=== PATIENT | male | born 1955 | race Hispanic/Latino ===

== ENCOUNTER 2023-05-17 09:45 | Day surgery (SDC) | payer OTHER ==
[2023-05-11 11:42] LABS: Absolute Lymphocytes (CBC) 1.7 K/uL (0.7-4.9); Hematocrit 42.1 % (39.6-49.0); Lymphocytes % 21.4 % (15.3-44.8); MCV 89.5 fL (80-100); MPV 8.5 fL (7.6-11.3); Platelets 256 thou/uL (152-406)
[2023-05-11 11:47] LABS: Protime INR 1.13
[2023-05-11 11:55] LABS: Potassium 3.8 mEq/L (3.5-5.1)
--- NOTE | 2023-05-11 12:39 | RAD REPORT ---
EXAM DESCRIPTION: RAD - Chest Pa And Lat (2 Views) - 05/11/2023 11:40 am CLINICAL HISTORY: pre op pending cystoscopy/laser lithotripsy Chest pain. COMPARISON: No comparisons TECHNIQUE: PA and lateral views of the chest were obtained. FINDINGS: The lungs are hyperexpanded compatible with COPD. The heart is upper limit of normal in si ze. No fracture or aggressive bony process. Small metallic foreign body projects over the inferior ri ght heart border along the right hemidiaphragm. IMPRESSION: COPD without acute process identified. The USPSTF recommends annual screening for lung cancer with low-dose CT (LDCT) in adults aged 50 to 8 0 years who have a 20 pack-year smoking history and currently smoke or have quit within the past 15 y ears.
--- NOTE | 2023-05-12 12:30 | EKG ---
Test Date: 2023-05-11 Test Time: 11:24:17 Thread Milling Machine Set Up Operator: OSMAN MEASUREMENT RESULTS: Intervals: Rate: 79 NH: 184 QRSD: 84 QT: 372 QTc: 426 [place]: P: 14 NH: 184 QRS: -21 T: 16 INTERPRETIVE STATEMENTS: Normal sinus rhythm Moderate voltage criteria for LVH, may be normal variant Cannot rule out Septal infarct, age undetermined Abnormal ECG Compared to ECG 01/14/2011 10:31:56 Myocardial infarct finding now present Left-axis deviation no longer present Electronically Signed On 05-12-23 12:28:03 CDT by Joe Maier
[2023-05-17] MEDS ORDERED: Ringers Lactate 1,000 ML IV ONE (10:11)
[2023-05-17] MEDS ORDERED: propofoL 200 MG/20 ML VIAL IV ONE ×2 (10:55→12:31)
[2023-05-17] MEDS ORDERED: FENTANYL CITR 100 MCG/2 ML ONE ×2 (10:55→11:59)
[2023-05-17] MEDS ORDERED: LIDOCAINE 1% MPF 5 ML VIAL ONE (10:55)
[2023-05-17] MEDS: CEFAZOLIN SODIUM 2 GM/VIAL ONE ×2 (11:33→11:37)
[2023-05-17] MEDS ORDERED: ONDANSETRON 4 MG/2 ML VIAL ONE (11:43)
[2023-05-17] MEDS ORDERED: dexAMETHasone 10 MG/ML VIAL ONE (11:44)
[2023-05-17] MEDS ORDERED: EPHEDRINE SULF 50 MG/ML VIAL ONE (11:46)
[2023-05-17] MEDS ORDERED: Mastisol Adhesive Liq ONE (12:37)
--- NOTE | 2023-05-17 12:49 | RAD REPORT ---
EXAM DESCRIPTION: RAD - Urethrocystogrphy Retrograde - 05/17/2023 12:42 pm CLINICAL HISTORY: LEFT STENT PLACEMENT COMPARISON: No comparisons FINDINGS: Total fluoro time: 0.18 minutes
[2023-05-17] MEDS ORDERED: PHENAZOPYRIDINE 100MG TAB PO ONE (13:32)
[2023-05-17] MEDS ORDERED: HYDROCODONE/APAP 5/325 MG TAB PO PRN (13:32)
[2023-05-17 14:24] VITALS: BP 129/73; TEMP 97.1; O2SAT 96
--- NOTE | 2023-05-17 20:17 | OP ---
Surgeon: MARTHA WALSH Preoperative Diagnosis: Left nephroureterolithiasis. Postoperative Diagnoses: 1.Left nephrolithiasis. 2.No ureterolithiasis noted. Principal Procedures: 1.Cystoscopy. 2.Left retrograde pyelography. 3.Left ureteroscopy with laser lithotripsy. 4.Tethered left ureteral stent placement. Indication For Procedure: Mr. Schwarz presented to the Urology Clinic with a history of a 7 mm x 3 mm obstructing ureteral calculus obtained on outside imaging. This was associated with a 5 mm ki dney stone on the left side. Despite straining his urine, he never saw a stone pass and thus present s today for definitive evaluation and management of his ureteral calculus and if possible his renal c alculus. Procedure In Detail: The patient was consented in the preoperative holding area before being transfe rred to the operative suite where general anesthesia was induced. He was given Ancef 2 g IV antimicr obial prophylaxis and pneumo boots were provided for DVT prophylaxis. He was placed in the lithotomy position, padded and secured to the table appropriately, and his genitalia were prepped with Hibicle ns and draped in standard fashion. The case was begun using a 22-Spanish rigid cystoscope to traverse the bladder with ease. Of note, there was evidence of prior prostatic urethral resection, but there was still significant lateral lobar hypertrophy largely emanating from the patient's left side. The bladder was surveyed in its entirety, and there were no papillary mucosal lesions, foreign bodies or stones noted throughout. The ureteral orifices were orthotopic in location. I thus cannulated the left ureteral orifice using a 5-Spanish ureteral access catheter and performed a retrograde pyelogram study. Left retrograde pyelography: Using a 70:30 mixture of Omnipaque and saline, contrast was injected vi a the lumen of the 5-Spanish ureteral access catheter and did propagate up the distal into the mid and proximal ureter without signs of ureteronephrosis with the exception of initial delayed nephrogram w ith contrast that effluxed around the 5-Spanish ureteral access catheter back into the bladder. After that initial efflux into the bladder, I advanced the 5-Spanish ureteral access catheter further into the mid distal ureter and again injected contrast, and this time it did enter the renal pelvis and ca lyces without evidence of blunting or pelvocaliectasis. Because of the initial reflux of contrast ba ck out the ureteral orifice on the initial attempt and injection, I elected to survey to ensure the a bsence of any partial obstruction due to a remnant ureteral calculus. Because of his known nephrolit hiasis, I decided to approach it flexible ureteroscopically. So, I then removed the 5-Spanish uretera l access catheter after placing a Sensor wire via the 5-Spanish ureteral access catheter, coiling it w ithin the upper pole calyx. I then passed over the Sensor wire and a dual-lumen catheter all the way into his upper pole calyx to dilate the ureter and passed a Bentson guidewire via the second lumen o f the dual-lumen catheter, again coiling it within the upper pole calyx. After a period of dilation, I removed the dual-lumen catheter and passed over the Bentson guidewire a flexible ureteroscope with ease all the way into the upper pole calyx. I then surveyed each of the calices under direct vision . Within the upper pole and mid pole calyces both anterior and posterior, no stones were noted, only some slight early formation of Jose Antonio's plaques. However, within the lower pole calyx, there was e vidence of disrupted papilla where a stone had likely recently been extruded, and there was slight re sidual stone burden within that disrupted papilla. As a result, I utilized a 272 nm laser fiber and power setting of 0.8 joules and 15 hertz to disrupt the remnant degree of calculus from within that p apilla in the lower pole, and ensure complete elimination of that Jose Antonio's plaque. I then surveyed back into the mid pole and upper pole calices, and where any significant Jose Antonio's plaques were noted , I superficially fulgurated them with the laser fiber. I then surveyed each of the calices on the w ay out ensuring each had been seen by injecting contrast via the ureteroscope to delineate each of th e calices and the pelvicalyceal distribution system, and once I was confident I had seen all of the c alices, I surveyed back into the renal pelvis down into the proximal through the mid and distal urete r on the way out. I saw no additional ureteral calculi, and so I removed the ureteroscope. I then b ack-loaded the cystoscope over the indwelling Sensor safety wire and passed a 6-Spanish x 26 cm double -J ureteral stent, which was left on its tether. A coil was formed fluoroscopically in the upper solo e and 1 cystoscopically was formed in his bladder. I then decompressed his bladder of fluid and urin e and removed the cystoscope. I then utilized Mastisol and Steri-Strips to secure the tether of the ureteral stent to his glans penis and then took him out of the lithotomy position. He was then awake deja from general anesthesia, transferred to a stretcher, and then transferred to the recovery room in good condition. Complications: None. Discharge Disposition: He may follow up on to have the left ureteral tethered stent removed in clinic. He may be given a single dose of Keflex for antimicrobial prophylaxis as long as he has no known allergy to it or penicillin. Otherwise, followup should be established if he is a recurrent stone former, i.e., he has had stone passage events in the past, and we should arrange a metabolic p rofile assessment with Litholink x2, which should occur about 1 month after stent is removed. He ann-marie velazquez then see me about a month after that or about 2 months from now. AUSTIN/LINDA Voice ID: [id number] Report ID: [id number]
== END 2023-05-17 14:15 | disposition home or self-care (01) ==
LOC: OR 09:45
PROVIDERS: ATTEND Urology
PROC: 0T778DZ Dilation of Left Ureter with Intraluminal Device, Via Natural or Artificial Opening Endoscopic (ICD-10-PCS; 2023-05-17)
PROC: 0TF78ZZ Fragmentation in Left Ureter, Via Natural or Artificial Opening Endoscopic (ICD-10-PCS; principal; 2023-05-17 11:45)
DX: N20.2 Calculus of kidney with calculus of ureter (principal); E78.00 Pure hypercholesterolemia, unspecified; F17.210 Nicotine dependence, cigarettes, uncomplicated
CPT/HCPCS: 93005; 87088; 85025; 87086; 80048; 36415; 85610; 71046; 74450; 51610; 52356; J2704 ×2; J2001; J3010 ×2; J1100; J2405; J7120

== ENCOUNTER 2024-07-05 15:28 | Inpatient (IN) | payer OTHER ==
[2024-07-16] MEDS ORDERED: ALBUTEROL 2.5 MG/3 ML NEB SOL NEB PRN (21:49)
[2024-07-16] MEDS ORDERED: IPRATROPIUM BROM 0.5MG/2.5ML NEB PRN (21:49)
[2024-07-16] MEDS ORDERED: POLYETHYL GLY 3350 17 GM/DOSE PO PRN (22:07)
[2024-07-16] MEDS ORDERED: ONDANSETRON 4 MG (ODT) TAB PO PRN ×2 (22:07→23:34)
[2024-07-16] MEDS ORDERED: MECLIZINE HCL 12.5 MG TAB FT PRN (22:07)
[2024-07-16] MEDS ORDERED: METOCLOPRAMIDE 10MG/10ML UCUP FT PRN (22:07)
[2024-07-16] MEDS ORDERED: HYOSCYAMINE SULF 0.125 MG TAB PO PRN (22:07)
[2024-07-16 22:41] LABS: Renal Epithelial <5 /HPF (None Seen); Specific Gravity 1.016 (1.005-1.030); Sqamous Epithelial None Seen /HPF (None Seen); Urine Bacteria <20 /HPF (<20); Urine Bilirubin NEGATIVE (Negative); Urine Blood 2+ (Negative); Urine Clarity Extremely Turbid (Clear); Urine Color Yellow (Yellow); Urine Culture Reflex Order NOT NEEDED; Urine Glucose TRACE (Negative); Urine Ketones TRACE (Negative); Urine Micro Reflex YN NO BILL MICROSCOPIC; Urine Mucus Slight /HPF (None Seen); Urine Nitrite NEGATIVE (Negative); Urine Protein TRACE (Negative); Urine RBC >50 /HPF (None Seen); Urine Urobilinogen 3+ (Normal); Urine WBC <5 /HPF (<5); Urine pH 7.5 (5.0-7.0)
[2024-07-16 23:06] VITALS: BMI 23.7
--- NOTE | 2024-07-16 23:53 | RAD REPORT ---
Clinical Indication: Check PEG placement. Comparison: None. FINDINGS: Supine radiograph of the abdomen, 1 view, was obtained. No gas dilated loops of bowel are noted. Ther e is no pneumatosis or mass effect. There are no radiopaque densities noted. The bony structures are unremarkable. A gastrostomy catheter is noted overlying the epigastric region. Two T-tacks are noted. Contrast was injected through the gastrostomy catheter opacifying the gastric lumen. No extravasation of contrast is noted. IMPRESSION: 1. Percutaneous gastrostomy catheter in good position. Electronically signed by: Nicho Galo MD 07/16/2024 11:43 PM [facility] Due to temporary technical issues with the PACS/J[employer] reporting system, reports are being beatriz d by the in-house radiologist without review as a courtesy to ensure prompt reporting the interpreting radiologist is fully responsible for the content of the report. Transcribed Date/Time: 07/16/2024 11:53 PM
[2024-07-17 04:55] LABS: Absolute Eosinophils 0.1 K/uL (0-0.5); Absolute Lymphocytes (CBC) 1.5 K/uL (0.7-4.9); Absolute Monocytes 0.6 K/uL (0.1-1.3); Absolute Neutrophil 5.3 K/uL (1.8-8.0); Basophils % 0.3 % (0-1.3); Eosinophils % 1.4 % (0-4.4); Hematocrit 35.7 % (39.6-49.0); Hemoglobin 11.8 g/dL (13.6-17.9); Lymphocytes % 20.3 % (15.3-44.8); MCH 30.3 pg (27.0-35.0); MCHC 33.2 g/dL (32.0-36.0); MCV 91.2 fL (80-100); MPV 8.9 fL (7.6-11.3); Monocytes % 7.6 % (3.3-12.3); Neutrophils % 70.4 % (41.7-73.7); Platelets 273 thou/uL (152-406); RBC Red Blood Cell Count 3.92 M/uL (4.33-5.43); Red Cell Distribution Width 13.7 % (12.1-15.2)
[2024-07-17 05:26] LABS: Albumin 2.5 g/dL (3.4-5.0); Anion Gap 6.4 mEq/L (5.0-15.0); Potassium 3.4 mEq/L (3.5-5.1); Prealbumin 13.6 mg/dL (20-40)
[2024-07-17] MEDS: ASPIRIN 81 MG CHEWABLE TABLET FT SCH (07:22)
[2024-07-17] MEDS: ENOXAPARIN 40 MG/0.4 ML SQ SCH (07:22)
[2024-07-17] MEDS: SUCRALFATE 1 GM TABLET FT SCH (07:22)
[2024-07-17] MEDS: INSULIN REGULAR (HUMAN) 100 UNIT/ML SQ SCH (07:30)
[2024-07-17] MEDS: Pantoprazole (granules) 40 MG/BLIST PACKET FT SCH (07:30)
[2024-07-17] MEDS ORDERED: ASPIRIN EC 81 MG TAB PO SCH (08:00)
[2024-07-17] MEDS: COENZYME Q10- 200 MG CAP PO SCH (08:00)
--- NOTE | 2024-07-17 08:37 | RAD REPORT ---
EXAM: CT brain without contrast HISTORY: rt side numbness COMPARISON: Outside examination TECHNIQUE: Multiple contiguous axial images were obtained and a CT of the brain without contrast. Sag ittal and coronal reformats were performed. One or more of the following dose reduction techniques were used: Automated exposure control, adjust ment of the mA and/or kV according to patient size, and/or iterative reconstruction. FINDINGS: No evidence of hydrocephalus, intracranial hemorrhage, or extra-axial fluid collection. Moderate brain atrophy with moderate periventricular and deep white matter chronic microvascular isc hemic changes present. No evidence of midline shift or areas of brain edema. The calvarium is intact. The visualized paranasal sinuses and mastoid air cells are essentially clear . IMPRESSION: No evidence of acute intracranial abnormality.
[2024-07-17] MEDS ORDERED: guaiFENesin 100 MG/5 ML UCUP PO PRN (13:13)
[2024-07-17] MEDS: POTASSIUM 25 MEQ EFFERV TAB PO ONE (13:52)
[2024-07-17] MEDS: ONDANSETRON 4 MG (ODT) TAB FT PRN (13:52)
--- NOTE | 2024-07-17 16:39 | RAD REPORT ---
Procedure: Chest Single View HISTORY: Cough COMPARISON: 2022 FINDINGS: The lungs appear clear of acute infiltrate.. Lungs are hyperaerated. cardiac monitor device in place. No significant pleural effusion noted. The heart is normal size. IMPRESSION: No acute abnormality is displayed.
[2024-07-17] MEDS ORDERED: FAMOTIDINE 20 MG TAB PO SCH (20:00)
[2024-07-17] MEDS: MELATONIN 5 MG TABLET PO PRN (20:54)
[2024-07-17] MEDS: TAMSULOSIN 0.4 MG SR CAP FT SCH (20:54)
[2024-07-17] MEDS: DULOXETINE 30 MG CAP PO SCH (20:54)
[2024-07-17] MEDS: ATORVASTATIN 80 MG TAB FT SCH (20:54)
--- NOTE | 2024-07-17 23:44 | HP ---
Date of Admission: 07/16/2024 Time Of Service: 1 p.m. Chief Complaint: "I had a stroke." History Of Present Illness: Mr. Schwarz is a 69-year-old patient with dyslipidemia and history of neck tremor, who presented to Emergency Department on 06/27/2024 with left-sided weakness, facial droop, dysarthria. Prior to the event, he was completely independent, living without any need with h is . At the time of onset of symptoms, his called 911. He was seen in the hospital and she life flighted to [facility] for higher level of care. Head CT scan was negative. CT angiogram did not show large vessel occlusion. He had nausea, dysphagia, and again tr uncal ataxia. As he arrived in the hospital within the window for thrombolysis, he received TNKase. In [place], he did have a swallow evaluation done and he failed the PEG tube. Furthermore, he had h ypoxic respiratory failure around the that required high-flow oxygen and antibiotics. He was ma naged in the ICU at that point. Subsequently, percutaneous gastrostomy tube was placed on July 06 secondary to his dysphagia and high risk of aspiration. In addition, the patient had urinary rete ntion following the stroke and he has had bladder training while at [facility], but failed and does have the catheter re-inserted. He had an episode of bradycardia on July 10, and was halley ged with beta-zulay as well as for intention tremor or essential tremor. It was noted as the patie nt had a bradycardia while on beta-zulay for essential tremor, that was cut back to allow the heart rate to improve. He was evaluated by the therapy service and found to be at a contact guard to mini mum assistance level for all functional mobility. He did have decreased tolerance, decreased mobilit y, and overall deconditioning. In addition, of course a PEG tube as he is a high risk of aspiration. He began to tolerate continuous Fibersource liquid nutrition at 80 cc an hour and did have a kangar oo pump used since 07/14. He was able to begin trying ice chips and had modified barium swallow set for . He did have an EGD that showed hiatal hernia with esophagitis, with ulceration and erosion in the middle third of the esophagus. At this point began having bowel movements again, with a plan to advance his diet as tolerated. He has been cleared for inpatient rehabilitation to include physi sera, occupational, and speech therapy. Past Medical History: Dyslipidemia, benign essential tremor, prostate hypertrophy. Allergies: NO KNOWN DRUG ALLERGIES. X-ray/imaging: Chest x-ray on 07/05 shows possible pneumonia. X-ray of the abdomen on 07/05 shows n o bowel obstruction. There was [id number]-wk-[id number] colonic stool burden. Feeding tube overlies gastri c antrum. EGD, on 07/12, shows a 2 mm sliding hiatal hernia. Moderate grade C esophagitis with mult iple mucosal breaks likely contributing to food intolerance. KUB at that time did show large stool b urden. Recent chest x-ray since admission shows no acute abnormalities displayed. No evidence of pn eumonia. A head CT also done on admission shows no evidence of acute intracranial abnormalities. Th ere was moderate brain atrophy with moderate periventricular chronic microvascular ischemic changes. No evidence of any midline shifting. No hydrocephalus. KUB study done on 07/16 identified a percut aneous gastrostomy catheter in good position. No extravasation of contrast is noted. Laboratory Studies: White blood cell count 7.6, hemoglobin 11.8, platelets 273. Sodium 138, potassi um 3.4, chloride 105, carbon dioxide 30, BUN 11, creatinine 0.57, glucose ranged from 91 to 104. Hem oglobin A1c 5.4. Calcium 8.7, magnesium 2.0, albumin 2.5. Prealbumin 13.6. Urinalysis suggests uri nary tract infection with urobilinogen 3+, RBCs greater than 50, trace protein, 2+ blood, trace keton es, glucose elevated, pH 7.5, extreme turbidity. Current Medications: Tylenol 500 mg every 4 hours as needed for rhsv-ek-hlwnymos pain, albuterol neb ulizer 2.5 mg every 6 hours as needed, aspirin 81 mg daily, Lipitor 80 mg at bedtime, Coenzyme Q10 10 0 mg daily, Lovenox 40 mg subcutaneously daily, Pepcid 20 mg twice daily, guaifenesin 200 mg 4 times daily as needed, Levsin 0.125 mg every 4 hours as needed for abdominal cramping, atorvastatin nebuliz er treatment 0.5 mg nebulizer every 6 hours as needed, Antivert 12.5 mg every 8 hours as needed for d izziness, melatonin 5 mg at bedtime, Reglan 10 mg every 6 hours as needed for nausea, Zofran 8 mg jenny ry 8 hours as needed for nausea, Carafate 1 g twice daily, Flomax 0.4 mg at bedtime, and trazodone 50 mg at night as needed for insomnia. Family History: Noncontributory. Social History: No alcohol, tobacco, or IV drug use. Lives in a single family home with . Code Status: Full Code. Review of Systems: Mr. Schwarz is reporting no complaints of pain or discomfort. No current nausea. Mild myalgias and arthralgias. No rash. No psychiatric complaints. Still Vences to be removed. Issues of swallo wing to be addressed of course with PEG tube placed and is working on being able to advance oral feed ing and is wanting to work hard to return to normal oral feeding. Otherwise, his review of systems i s negative. Current Level Of Functioning: Eating is dependent. Supervision for oral hygiene and toileting along with bathing. Supervision for upper and lower body dressing, and donning and doffing footwear. Allison conley [id number], going from lying to sitting, sitting to standing, supervision. Walking, supervis ion. He was able to ambulate 50 feet with a rolling walker. Stairs not yet tested. Physical Examination: Vital Signs: Blood pressure is 109/65, pulse 84, respiratory rate 18, temperature 97.6, oxygen satur ation 95%. General: Mr. Schwarz is resting comfortably in his hospital bed. HEENT: He is normocephalic, atraumatic. Sclerae anicteric. Oropharynx pink and moist. Neck: Supple. Chest: Clear. Heart: Regular. Extremities: No significant clubbing, cyanosis, or edema. Skin: Good hemostasis at the PEG tube site. Neurological: He is alert and oriented to situation, place, person. Follows commands appropriately. Mild diffuse weakness, upper and lower extremities. No focal deficits noted. Coordination intact. Symmetric reflexes. Rehab And Medical Assessment And Plan: Mr. Schwarz is admitted to the inpatient rehabilitation unit with impairment category 01, stroke. His impairment group code is 01.1, left body involvement, right brain. Etiologic diagnosis: Cardioembolic stroke. Comorbidities are aspiration pneumonia, br adycardia, constipation, chronic obstructive pulmonary disease, decreased mobility, decreased physica l functioning, dysarthria, dysphagia, hypocalcemia, urinary retention, and ataxic gait. Plan: 1.He will have physical, occupational, and speech therapy for 3.5 hours, 5 of 7 days. 2.We will address insomnia with melatonin and trazodone. Prostate hypertrophy with Flomax. ___ protection with Carafate, Reglan for GI motility issues, Antivert for nausea, ipratropium nebuliz er along with albuterol nebulizer for COPD. His hemoglobin A1c does not show any evidence of diabete s mellitus, and blood sugars will not be checked a.c. and at bedtime. We will continue for muscle sp asms the Levsin, Pepcid for GE reflux, Lovenox for DVT prophylaxis, Lipitor for dyslipidemia, aspirin for stroke risk reduction Tylenol Extra Strength for pain. Comorbidities That Are Impacting Rehabilitation: As noted, he has a PEG tube and is receiving most o f his feeding by the PEG tube. He had some issues with getting the right calorie concentration and t he wastewater operator is being consulted to help. Speech Pathology is working hard to get him to be able t o manage oral intake fully. He is using ice chips at this point and will have a modified barium swal low done. There is a risk of deep vein thrombosis and he does have Lovenox on board. Pneumonia, the re is of course an aspiration risk. Currently, chest x-ray looks good. Risk of constipation is pres ent. Urinary retention with urinary tract infection is also a potential, cranberry to be added and F oley to be replaced. It is noted that since the stroke, the patient did fail the bladder training an d will re-attempt while he is in the rehab unit. Rehab Specific Plan: The patient will have physical, occupational, and speech therapy 3.5 hours, 5 o f 7 days. We will work on improving his ability to transfer from bed to chair onto a walker and whee lchair, mobilize to the toilet, on and off the toilet, to shower, in and out of shower, to perform hi s upper and lower body dressing and donning/doffing footwear. Also, worked on his ability to mobiliz e household distances at least 250 feet with a rolling walker and wheelchair, and go up and down at l east 10 steps with bilateral handrails, and cognitive functioning to work with his swallowing to redu ce aspiration risk to make safe sound decisions, and followup in terms of his daily prescriptions and physician followup. The patient has a good understanding of the process of admission to the inpatient rehabilitation unit , and how he will benefit from physical, occupational, and speech therapy. He will have 24 hours a d ay, 7 days a week skilled rehabilitation nursing, daily physician evaluation and management, and [facility] evaluation and management for discharge planning, home equipment, and to continue with the rapy. If need be, additional help from the hospital service will be sought. Barriers To Discharge: He does have a Vences, which he has failed the bladder training. We will re-a ttempt bladder training. In addition, PEG tube is present and it will be kept in place at least for several weeks, but the patient will work on improving oral feeding with aggressive speech management. He may require the PEG tube to continue beyond the time and will have to train the family on how to address the tube feedings. Again, the bladder issues to be addressed, but he may have to go home wi th those. May have to go to a half-way if those are able to be managed at home. Length Of Stay: About 14 to 17 days. Disposition: Home with family and continue therapy via Home Health. Prognosis: Good. Code Status: Full Code. Rehab Specific Goals: 1.Become independent with upper and lower body dressing and donning/doffing footwear. 2.Independently transfer from bed to chair to shower to toilet. 3.Independently mobilize 250 feet with a rolling walker. 4.Independently go up and down 10 steps with bilateral handrails. 5.Independently perform cognitive functioning. The above goals were reviewed with the patient and he is in agreement. By signing this document, I acknowledge I personally performed a full physical examination on Mr. Elo robledo no later than 24 hours after his admission to the inpatient rehabilitation unit and jolene short that he is able to tolerate the above course of treatment at an intensive level for a reasonable period of time. A detailed individualized plan of care for him will be completed by hospital day 4 based on the preadmission screen, history and phy sical, and therapy evaluations. LB/MODL Voice ID: [id number]
[2024-07-18 06:27] LABS: Anion Gap 6.7 mEq/L (5.0-15.0); Potassium 3.7 mEq/L (3.5-5.1)
[2024-07-18] MEDS: FAMOTIDINE 20 MG TAB PO SCH (07:41)
[2024-07-18] MEDS: CRANBERRY FRUIT EXTRACT 425 MG CAPSULE FT SCH (10:11)
--- NOTE | 2024-07-18 19:41 | PN ---
Date of Progress Note: 07/18/2024 Time Of Service: 1 p.m. Subjective: Mr. Viveros is sitting in a chair in his room. No new complaints although did have some reflux today and had Pepcid given for the reflux. Otherwise no new complaints. Says he is feeling b mirella with his therapy, regaining strength, coordination, and balance. Objective: Mild myalgias, arthralgias. No rash. No headache. No other complaints. Physical Examination: Vital Signs: Blood pressure 109/67, pulse 77, respiratory rate of 16, temperature 97.7, oxygen satur ation 94%. Weight 151 pounds, height 5 feet 7 inches, BMI 23. General: The patient again is sitting in a chair beside bed. HEENT: He is normocephalic, atraumatic. Sclerae anicteric. Oropharynx is moist. Neck: Supple. Chest: Clear. He denies any significant pain in the chest at this point. Extremities: No significant edema or cyanosis. Mild swelling in the lower extremities, otherwise, n o new findings there. Laboratory Studies: Blood sugars ranged from 85-117. Sodium 137, potassium 3.7, chloride 104, carbo n dioxide 30, BUN 13, creatinine 0.61, calcium 8.8. His urine culture showed no growth despite urina lysis suggesting urinary tract infection. X-ray/imaging: No new x-rays or imaging. Medications: The medications have been reviewed. He is receiving Pepcid 20 mg twice daily. In huma tion, Robitussin for cough. He has Reglan for reflux. Other medications are continued unchanged. Progress Made With Physical, Occupational Therapy: Today with physical therapy he did perform unsupp orted standing balance activities, maintain unsupported standing with modified independence. Perform ed anticipatory balance and activity while reaching for targets and uses bilateral upper extremities. He did propel a wheelchair with minimum to moderate assistance required. In addition, he ambulated 750 feet with contact guard assistance using a rolling walker and then 250 feet twice with contact g uard assist without an assistive device. He did holwsp-sm-kdy transfer with standby assistance. His blood pressure at the end after he reported some dizziness was 100/62, heart rate of 102. He recove red with just sitting. With occupational therapy, independent in bed mobility supine to sit at edge of bed, was at independence from edge of bed to standing. He was able to do so with independence, pr opel a wheelchair from room to the gym with his feet and push with his hands. Did complete shoulder flexion exercises 10 repetitions while seated and standing with 2 pound dowel rhonda. Assessment: Mr. Viveros is a 69-year-old patient in the rehabilitation unit with a stroke involving h is right brain, left body from which he is recovering well. Still has some incoordination and some l eft-sided weakness. He has had a stroke, the etiology for stroke is cardioembolic. His comorbiditie s are aspiration pneumonia, bradycardia, hypotension, chronic obstructive pulmonary disease, decrease d mobility, decreased physical functioning, dysarthria, dysphagia. Plan: He will continue with physical and occupational therapy for 3 hours a day, 5 of 7 days. He wa s evaluated by Speech and will be followed as well. He did have hoarse voice and a weak cough. The patient was first on PEG tube feeding because of significant dysarthria, dysphagia. He did have mult iple swallows of ice chips trials. Did have gurgling vocal quality. A repeat or modified barium swa llow study will be done in the morning with speech pathologist and potential advancement of diet will be based on that. He did have some difficulty tolerating higher volume tube feedings and his tube f eedings are going to be supplemented with 50 cc of water q.4 hours again. Again, plan, he will arya nue physical, occupational, and speech therapy for 3.5 hours, 5 of 7 days. Continue for DVT prophyla xis Lovenox 40 mg subcutaneously daily, Cymbalta for depression, coenzyme Q10 on board as well, Lipit or for dyslipidemia, aspirin for stroke risk reduction, he has nebulizer treatment on board, Robitussin for cough, meclizine for dizziness, melatonin and trazodone for insomnia, Flomax fo r urinary retention. LB/MODL Voice ID: [id number] Report ID: [id number]
[2024-07-18] MEDS: TRAZODONE 50 MG TABLET PO PRN (20:57)
[2024-07-19 06:23] LABS: Absolute Eosinophils 0.1 K/uL (0-0.5); Absolute Lymphocytes (CBC) 1.7 K/uL (0.7-4.9); Absolute Monocytes 0.5 K/uL (0.1-1.3); Absolute Neutrophil 4.1 K/uL (1.8-8.0); Basophils % 0.5 % (0-1.3); Eosinophils % 1.6 % (0-4.4); Hematocrit 34.4 % (39.6-49.0); Hemoglobin 11.4 g/dL (13.6-17.9); Lymphocytes % 26.5 % (15.3-44.8); MCH 30.1 pg (27.0-35.0); MCHC 33.2 g/dL (32.0-36.0); MCV 90.6 fL (80-100); MPV 8.9 fL (7.6-11.3); Monocytes % 7.7 % (3.3-12.3); Neutrophils % 63.7 % (41.7-73.7); Platelets 250 thou/uL (152-406); RBC Red Blood Cell Count 3.79 M/uL (4.33-5.43); Red Cell Distribution Width 13.6 % (12.1-15.2)
[2024-07-19 06:41] LABS: Albumin 2.5 g/dL (3.4-5.0); Anion Gap 7.5 mEq/L (5.0-15.0); Magnesium 2.1 mg/dL (1.6-2.4); Potassium 3.5 mEq/L (3.5-5.1); Prealbumin 13.6 mg/dL (20-40)
--- NOTE | 2024-07-19 09:58 | RAD REPORT ---
Modified barium swallow exam with speech pathology service HISTORY: aspiration Fluoroscopy Time: 4 minutes and 33 seconds IMPRESSION: Please see the speech pathology service report for details. Barium contrast of multiple consistencies was provided the patient orally by the speech pathology dep artment. Fluoroscopic observation was performed during swallowing. The radiologist was not present for the examination. Laryngeal penetration cleared no cough with thin. Pharyngeal residue vallecular pyriform posterior wall. Delay in onset of swallow. Reduced tongue base retraction. Reduced laryngeal elevation.
[2024-07-19] MEDS: COENZYME Q10- 100 MG CAP PO SCH (10:12)
[2024-07-19] MEDS: POLYETHYL GLY 3350 17 GM/DOSE FT PRN (15:49)
--- NOTE | 2024-07-20 13:10 | P.RH.PN ---
Estimated Length of Stay: 10 Expected Discharge Date: 07/25/24 Discharge Disposition Plan: Home Family Support: Yes Halfway Goal: Mobility, Transfers, Self Care Vital Signs: Last Vital Signs Temp 98.1 F 07/20/24 08:00 Pulse 75 07/20/24 08:00 Resp 14 07/20/24 08:00 BP 112/73 07/20/24 08:00 Pulse Ox 98 07/20/24 08:00 Laboratory: Laboratory Last Values WBC 6.40 thou/uL (4.3-10.9) 07/19/24 05:59 RBC 3.79 M/uL (4.33-5.43) L 07/19/24 05:59 Hgb 11.4 g/dL (13.6-17.9) L 07/19/24 05:59 Hct 34.4 % (39.6-49.0) L 07/19/24 05:59 MCV 90.6 fL (80-100) 07/19/24 05:59 MCH 30.1 pg (27.0-35.0) 07/19/24 05:59 MCHC 33.2 g/dL (32.0-36.0) 07/19/24 05:59 RDW 13.6 % (12.1-15.2) 07/19/24 05:59 Plt Count 250 thou/uL (152-406) 07/19/24 05:59 MPV 8.9 fL (7.6-11.3) 07/19/24 05:59 Neutrophils % 63.7 % (41.7-73.7) 07/19/24 05:59 Lymphocytes % 26.5 % (15.3-44.8) 07/19/24 05:59 Monocytes % 7.7 % (3.3-12.3) 07/19/24 05:59 Eosinophils % 1.6 % (0-4.4) 07/19/24 05:59 Basophils % 0.5 % (0-1.3) 07/19/24 05:59 Absolute Neutrophils 4.1 K/uL (1.8-8.0) 07/19/24 05:59 Absolute Lymphocytes 1.7 K/uL (0.7-4.9) 07/19/24 05:59 Absolute Monocytes 0.5 K/uL (0.1-1.3) 07/19/24 05:59 Absolute Eosinophils 0.1 K/uL (0-0.5) 07/19/24 05:59 Absolute Basophils 0.0 K/uL (0-0.5) 07/19/24 05:59 Sodium 134 mEq/L (136-145) L 07/19/24 05:59 Potassium 3.5 mEq/L (3.5-5.1) 07/19/24 05:59 Chloride 100 mEq/L (98-107) 07/19/24 05:59 Carbon Dioxide 30 mEq/L (21-32) 07/19/24 05:59 Anion Gap 7.5 mEq/L (5.0-15.0) 07/19/24 05:59 BUN 12 mg/dL (7-18) 07/19/24 05:59 Creatinine 0.55 mg/dL (0.70-1.30) L 07/19/24 05:59 Est GFR (CKD-EPI) 109 ml/min (=/>90) 07/19/24 05:59 Glucose 95 mg/dL (74-106) 07/19/24 05:59 POC Glucose 107 mg/dL (65-120) 07/20/24 11:22 Hemoglobin A1c 5.4 % (4.2-6.3) 07/17/24 04:40 Calcium 8.7 mg/dL (8.5-10.1) 07/19/24 05:59 Magnesium 2.1 mg/dL (1.6-2.4) 07/19/24 05:59 Albumin 2.5 g/dL (3.4-5.0) L 07/19/24 05:59 Prealbumin 13.6 mg/dL (20-40) L 07/19/24 05:59 Urine Color Yellow (Yellow) 07/16/24 21:30 Urine Clarity Extremely turbid (Clear) H 07/16/24 21:30 Urine pH 7.5 (5.0-7.0) H 07/16/24 21:30 Ur Specific Peyton 1.016 (1.005-1.030) 07/16/24 21:30 Glucose (UA)(Auto) Trace (Negative) H 07/16/24 21:30 Urine Ketones Trace (Negative) H 07/16/24 21:30 Urine Blood 2+ (Negative) H 07/16/24 21:30 Urine Nitrite Negative (Negative) 07/16/24 21:30 Urine Bilirubin Negative (Negative) 07/16/24 21:30 Urine Urobilinogen 3+ (Normal) H 07/16/24 21:30 Ur Leukocyte Esterase Negative Yumiko/uL (Negative) 07/16/24 21:30 Urine RBC >50 /HPF (None Seen) H 07/16/24 21:30 Urine WBC <5 /HPF (<5) 07/16/24 21:30 Ur Squamous Epith Cells None seen /HPF (None Seen) 07/16/24 21:30 U Non-Squamous Epi Cells <5 /HPF (None Seen) 07/16/24 21:30 Ur Renal Epithelial Cell <5 /HPF (None Seen) 07/16/24 21:30 Urine Bacteria <20 /HPF (<20) 07/16/24 21:30 Urine Mucus Slight /HPF (None Seen) 07/16/24 21:30 Urine Culture Reflexed Not needed 07/16/24 21:30 Urine Total Protein Trace (Negative) H 07/16/24 21:30 Weight: 151 lb 11.2 oz Wound Present: Yes Closed Surgical Incision Present: No Negative Pressure Wound Therapy Present: No Physician Update: Labs reviewed and are stable. Delayed onset of swallowing, reduced tongue base retraction, poor pharyngeal closure. Aspirating liquids. SLUMS 24. Independent with physical therapy. RW 750' SBA, 10 steps with CGA, RW 250'. He is near independence with all ADLs. Summary: Patient's care plan and longterm goals have been reviewed and revised as necessary. Please see the Rehabilitation Signature page for all necessary signatures.
[2024-07-20] MEDS: SUCRALFATE 1 GM TABLET FT SCH (16:57)
[2024-07-20] MEDS ORDERED: D10W 125 ML IV PRN (17:01)
[2024-07-20] MEDS ORDERED: GLUCAGON 1 MG/VIAL IM PRN (17:01)
[2024-07-20] MEDS ORDERED: ALBUTEROL 2.5 MG/3 ML NEB SOL NEB PRN (18:22)
[2024-07-20] MEDS: FAMOTIDINE 20 MG TAB PO SCH (19:05)
[2024-07-21] MEDS: ENOXAPARIN 30 MG/0.3 ML SQ SCH (08:31)
[2024-07-21] MEDS: ACETAMINOPHEN 500 MG TAB PO PRN (08:33)
[2024-07-21] MEDS: INSULIN REGULAR (HUMAN) 100 UNIT/ML SQ SCH ×2 (20:51)
[2024-07-21] MEDS: JEVITY 1.5 CAL LIQUID 1,000 ML BOT FT SCH (20:53)
[2024-07-22] MEDS: PRAMIPEXOLE 1 MG TAB PO SCH (20:10)
[2024-07-23] MEDS: SIMETHICONE 80 MG CHEWABLE TAB PO PRN (17:37)
--- NOTE | 2024-07-23 22:34 | PN ---
Date of Progress Note: 07/23/2024 Time Of Service: 1 p.m. Subjective: The patient is resting in bed. He is very happy so far with his therapy. His chest myrna n is nonsignificant. Family at bedside and the patient is very happy so far with all of his progress . He has no new complaints. The patient and his family were worried about bolus feedings at home. He also did report some hiccups with the tube feedings and simethicone 80 mg every 6 hours was added. May consider baclofen as well if need be. Objective: Again mild hiccups, but no fevers, chills. No nausea, vomiting. No myalgias, arthralgia s, rash, psychiatric complaints. No new issues such as issues, where he is on PEG tube feedings a nd has aspiration per the modified barium swallow done by Speech Pathology last week. Physical Examination: Vital Signs: Blood pressure 98/61, pulse 74, respiratory rate 18, temperature is 97.7, oxygen satura tion 94%. General: The patient is again resting comfortably in bed, he is in no acute distress. HEENT: He is normocephalic, atraumatic. Sclerae anicteric. Oropharynx moist. Neck: Supple. Chest: Clear. Heart: Regular. Extremities: No clubbing, cyanosis, or edema. He has no new or other issues. Laboratory Studies: Blood sugars ranged from 81 to 118. X-ray/imaging: Again, barium swallow modified study that was done on 07/19 did show laryngeal penetr ation cleared. No cough. Pharyngeal residue and pyriform posterior wall seen, delay in onset of swa llowing, reduced tongue base retraction, reduced laryngeal elevation. Progress Made With Physical And Occupational Therapy: Today, he ambulated 250 feet with modified ind ependence, using a rolling walker and covered another 750 feet and 500 feet with a rolling walker wit h modified independence. Also, 250 feet without an assistive device with standby assistance. Bed mo bility, independent ild-kw-djeks transfers, frlgw-[id number]-hgiwh transfer, car transfer, all independent. With occupational therapy, independent with bed mobility, bathing, upper and lower body dressing, don amy and doffing footwear, all independent. With his speech, speech is working on swallowing. As no emir, barium swallow was done last week and the patient still has a significant road to go. He is fed by tube feedings at this point. Assessment: The patient is a 69-year-old with stroke involving the right brain left body, from which he is recovering very well. He has dysarthria, dysphagia, and on PEG tube feeding. He has aspirati on pneumonia, treated as bradycardia improved, hypotension improved, chronic obstructive pulmonary di sease, and of course decreased mobility, decreased physical functioning, which have improved. Plan: 1.We will continue with physical, occupational, and speech therapy 3.5 hours, 5 of 7 days. 2.His tube feedings are continued. His complaints of hiccups addressed with simethicone, but may co nsider baclofen as noted. We will continue Tylenol for pain, albuterol nebulizer for shortness of br eath, aspirin for stroke risk reduction, Lipitor for dyslipidemia. Has duloxetine 30 mg daily for ne uropathic pain and improvement of mood, Lovenox for DVT prophylaxis, muscle relaxant on board. Taylor nue the Atrovent nebulizer for shortness of breath, meclizine for vertigo symptoms, melatonin for ins omnia. He has still has Reglan on board for the GE reflux. He says restless legs symptoms improved significantly with pramipexole 1 mg at bedtime, which was a complaint earlier. He has simethicone ag ain for the reflux. He has Carafate to protect against stomach ulcer, Flomax for prostate hypertroph y, trazodone for insomnia. Those will be continued. Plan for his discharge in the morning. JOSSE/LINDA Voice ID: [id number] Report ID: [id number]
[2024-07-24] MEDS: METOCLOPRAMIDE 5 MG TAB FT PRN (02:53)
[2024-07-24 06:42] VITALS: BP 106/61; TEMP 97.6
== END 2024-07-24 10:40 | disposition home health service (06) | DRG 56 ==
LOC: 5TH 07-16 20:50
PROVIDERS: ADMIT Psychiatry & Neurology Neurology with Special Qualifications in Child Neurology; ATTEND Psychiatry & Neurology Neurology with Special Qualifications in Child Neurology
DX: I69.354 Hemiplegia and hemiparesis following cerebral infarction affecting left non-dominant side (principal); J69.0 Pneumonitis due to inhalation of food and vomit; I69.322 Dysarthria following cerebral infarction; I69.391 Dysphagia following cerebral infarction; E78.5 Hyperlipidemia, unspecified; G25.0 Essential tremor; N40.0 Benign prostatic hyperplasia without lower urinary tract symptoms; R00.1 Bradycardia, unspecified; K59.00 Constipation, unspecified; J44.9 Chronic obstructive pulmonary disease, unspecified; E83.51 Hypocalcemia; R33.9 Retention of urine, unspecified; R26.0 Ataxic gait
CPT/HCPCS: 36415; 70450; 71045; 74018; 74230; 80048; 81001; 82040; 82947; 83036; 83735; 84134; 85025; 87086; 87088; 92526; 92610; 92611; 97110; 97112; 97116; 97129; 97163; 97165; 97530; 97542; J1650; Q0162